=== PATIENT | female | born 1940 | race Caucasian/White ===

== ENCOUNTER → 2017-10-31 16:13 | Outpatient (CLI) | payer MEDICARE ==
[~2017-10-31 16:13] MED LIST: CALTRATE 600 M600 M1 PO; DICLOFENAC SODI50 MG PO; ELIQUIS2.5 MG PO; HYDROCODON-ACET15 ML PO; HYDROCODONE-APA1 TAB PO; KLONOPIN1 MG PO; MILK OF MAGNESI30 ML PO; MYLANTA II SUSP30 ML PO; NORCO 7.5/325 T1 TA1 PO; PERCOCET 10/3251 TA1 PO; SYNTHROID112 MCG PO; VITAMIN D5000 UNIT PO; VOLTAREN75 MG PO
[2018-02-02 11:16] VITALS: BMI 22.9
== END | disposition home or self-care (01) ==
LOC: D.LABREF 16:13
DX: M16.12 Unilateral primary osteoarthritis, left hip (principal)

== ENCOUNTER 2017-12-04 10:00 | Inpatient (IN) | payer MEDICARE ==
[~2017-12-04] VITALS: Ht 160 cm; Wt 59.1 kg
--- NOTE | ~2017-12-04 | OP ---
PATIENT NAME: TY AGUILERA MEDICAL RECORD: [id number] :42 LOCATION:[id number] ADMISSION DATE:12/09/17 SURGEON: MERCEDEZ MENEZES MD DATE OF OPERATION: 12/09/2017 PREOPERATIVE DIAGNOSIS: Severe degenerative arthritis of the left hip. POSTOPERATIVE DIAGNOSIS: Severe degenerative arthritis of the left hip. PROCEDURE: Left total hip arthroplasty. SURGEON: Mercedez Menezes MD ANESTHESIA: General. INTRAOPERATIVE COMPLICATIONS: None. SUMMARY OF PATHOLOGIC FINDINGS: A gross flattening of the femoral head with erosion of the posterior wall secondary to longstanding arthritis. IMPLANTS USED: [employer] Anato hip system, size 4 stem, standard 36 femoral head, 54 Tritanium cluster hole shell alpha code E with polyethylene to match. OPERATIVE SUMMARY IN DETAIL: After obtaining the appropriate preoperative orthopedic surgery consent as well as anesthetic consultation, evaluation and clearance, the patient was brought to the operating room and placed on the operating table in supine position. After general laryngeal mask airway was administered, the patient was placed in a right lateral decubitus position. All pressure points were well padded to include down leg peritoneal pad as well as axillary roll. The patient was held firmly to the operating table using the vacuum pack suction system. Left lower extremity and hip were then prepped and draped in routine sterile fashion. Curvilinear incision was made over the greater trochanter and taken down over the IT band, which was split in line of the fibers of the IT band to reveal the gluteus medius and minimus attachments of the greater trochanter. These were reflected anteriorly and saved for later reapproximation. The hip capsule was split in a T-type fashion. It was significantly obliterated given to this patient's severe arthritis. At this point, the hip was dislocated. Femoral neck cut was made using the femoral neck cutting guide for the Anato system. Attention was turned to the acetabulum. The acetabulum had severe posterior wall deficiency. Serial and sequential reaming was done for 53. Size [address] with good capture; however, 2 extra screws were placed because of the posterior wall deficiency. After copious irrigation, polyethylene liner was put into place. The anterior osteophytes were removed. Attention was then turned to the proximal femur. Serial and sequential reaming and broaching were done for a size 4 Anato stem, which was put into place. Trials were undertaken with the appropriate modular head lengths. It was felt that standard was the most appropriate. Standard was then placed and reduced. Intraoperative radiographs were taken and showed good position and placement of all components. The wound was copiously irrigated. At this point, Vitagel was used in the depths of the wound in each layer. Gluteus minimus and amee were reapproximated to the greater trochanter in a transosseous fashion with #5 Ethibond. This was followed by #2 Ethibond closure of the IT band, followed by #1 Vicryl, 2-0 Vicryl and zip tie closure. Having completed this, the patient was awakened, taken to recovery room in stable condition. All final needle and sponge counts were correct. OPERATIVE REPORT [id number] TY AGUILERA TRANSINT:[id number] Voice Confirmation ID: [id number] DOCUMENT ID: [id number] CLIF LOZANO, MERCEDEZ MORSE at 1921 CC: [id number] DICTATION DATE: 12/09/17 1350 TRADING MANAGER: 12/09/17 1531 ADM IN [facility] [address] [place] [address]
[~2017-12-04 10:00] MED LIST changes: -ELIQUIS2.5 MG PO; -HYDROCODON-ACET15 ML PO; -HYDROCODONE-APA1 TAB PO; -PERCOCET 10/3251 TA1 PO; -VOLTAREN75 MG PO
[2017-12-04 11:13] LABS: BASOPHILS 0.5 % (0-2); EOSINOPHILS 2.5 % (0-7); HEMOGLOBIN 14.9 g/dL (12-16); IMMATURE GRANULOCYTES 0.2 % (0-5); LYMPHOCYTES 35.4 % (15-50); MCH 33.3 pg (26.0-34.0); MCHC 33.9 g/dL (31.0-37.0); MCV 98.2 fL (80.0-100.0); MEAN PLATELET VOLUME 10.5 fL (7.4-10.4); MONOCYTES 6.8 % (2-11); NEUTROPHILS 54.6 % (40-80); PLATELET COUNT 206 10x3/uL (130-400); RBC 4.48 10x6/uL (4.00-5.40); RDW 13.2 % (11.5-14.5); WBC 6.5 10x3/uL (4.8-10.8)
[2017-12-04 11:21] LABS: APTT 25.7 SECONDS (22.8-39.4); INR 1.02 (0.85-1.17); PROTIME 13.1 SECONDS (11.6-15.0)
[2017-12-04 11:23] LABS: ANION GAP 12.5 mmol/L (8-16); CALCIUM 9.1 mg/dL (8.5-10.1); CARBON DIOXIDE 28.9 mmol/L (21.0-32.0); CREATININE - SERUM 0.8 mg/dL (0.6-1.3); POTASSIUM - SERUM 4.4 mmol/L (3.5-5.1)
[2017-12-04 11:30] LABS: APPEARANCE CLEAR (CLEAR); BACTERIA FEW /hpf (NONE SEEN); BILIRUBIN NEGATIVE (NEGATIVE); COLOR YELLOW (YELLOW); EPITHELIAL CELLS 0-5 /hpf (0-5); GLUCOSE NEGATIVE (NEGATIVE); KETONE NEGATIVE (NEGATIVE); MUCUS <1+ /lpf (NONE SEEN); NITRITE NEGATIVE (NEGATIVE); PROTEIN NEGATIVE (NEGATIVE); RED CELLS - URINE OCC /hpf (0-5); SPECIFIC GRAVITY 1.005 (1.005-1.020); UROBILINOGEN NORMAL (NORMAL); WHITE CELLS - URINE RARE /hpf (0-5)
[2017-12-09 07:38] VITALS: BP 137/74; BMI 23.0
[2017-12-09 15:11] VITALS: BP 136/79
[2017-12-09 19:14] VITALS: BP 136/79; Ht 160 cm; Wt 59.1 kg
[2017-12-09 21:52] VITALS: BP 121/74
[2017-12-10 00:37] VITALS: BP 124/74
[2017-12-10 05:06] LABS: HEMATOCRIT 35.6 % (36.0-48.0); HEMOGLOBIN 12.1 g/dL (12-16); MCH 33.2 pg (26.0-34.0); MCV 97.5 fL (80.0-100.0); MEAN PLATELET VOLUME 10.4 fL (7.4-10.4); RBC 3.65 10x6/uL (4.00-5.40); RDW 12.9 % (11.5-14.5); WBC 8.9 10x3/uL (4.8-10.8)
[2017-12-10 07:44] VITALS: BP 114/65
[2017-12-10 12:02] VITALS: BP 105/66
[2017-12-10 16:37] VITALS: BP 108/70
[2017-12-10 20:00] VITALS: BP 119/69
[2017-12-11 04:00] VITALS: BP 99/50
[2017-12-11 06:25] LABS: HEMATOCRIT 33.6 % (36.0-48.0); HEMOGLOBIN 11.2 g/dL (12-16); MCH 32.1 pg (26.0-34.0); MCHC 33.3 g/dL (31.0-37.0); MCV 96.3 fL (80.0-100.0); MEAN PLATELET VOLUME 10.6 fL (7.4-10.4); RBC 3.49 10x6/uL (4.00-5.40); WBC 7.5 10x3/uL (4.8-10.8)
[2017-12-11 08:06] VITALS: BP 100/58
[2017-12-11] MEDS ORDERED: PERCOCET 10/3251 TA1 PO (08:22)
[2017-12-11] MEDS ORDERED: ELIQUIS2.5 MG PO (08:22)
== END 2017-12-11 14:20 | disposition home health service (06) | DRG 470 ==
LOC: D.SDCHOLD 12-09 07:00 → D.MS 12-09 07:00 → D.SDCHOLD 12-09 08:40 → D.MS 12-09 14:27
PROVIDERS: Orthopaedic Surgery
PROC: 0SRB0JZ Replacement of Left Hip Joint with Synthetic Substitute, Open Approach (ICD-10-PCS; principal; 2017-12-09 10:45)
DX: M16.12 Unilateral primary osteoarthritis, left hip (principal); M25.752 Osteophyte, left hip; K21.9 Gastro-esophageal reflux disease without esophagitis; E03.9 Hypothyroidism, unspecified

== ENCOUNTER 2018-02-01 20:21 | Inpatient (IN) | payer MEDICARE ==
[~2018-02-01] VITALS: Ht 160 cm; Wt 58.6 kg
--- NOTE | ~2018-02-01 | OP ---
PATIENT NAME: TY AGUILERA MEDICAL RECORD: [id number] :42 LOCATION:[id number] ADMISSION DATE:02/01/18 SURGEON: SANTI MARTINEZ MD DATE OF OPERATION: 02/02/2018 PREOPERATIVE DIAGNOSES: 1. Acute appendicitis with localized peritonitis. 2. Hypothyroidism. 3. Osteoarthritis. 4. Gastroesophageal reflux disease. POSTOPERATIVE DIAGNOSES: 1. Acute appendicitis with localized peritonitis. 2. Hypothyroidism. 3. Osteoarthritis. 4. Gastroesophageal reflux disease. PROCEDURE: Laparoscopic appendectomy. SURGEON: Santi Martinez MD REPORT OF PROCEDURE: The patient's abdomen was prepped and draped in sterile fashion. A cutdown was made on the superior aspect of the umbilicus, 0 Vicryls were placed in the fascia bilaterally and the fascia was incised with 15-blade. I then bluntly entered into the peritoneal cavity and placed a 12-mm Isabella port. Under direct visualization, a 5-mm trocar was placed in left lower quadrant and another was placed in the suprapubic region. The appendix was grasped and elevated and noted to be markedly inflamed. The base of the appendix appeared to be normal in caliber. The window was made between the base of the appendix and the mesoappendix and the mesoappendix was transected with the 45 white load Endo-MADISYN stapler. The appendix was then transected at its base using a 45 blue load Endo-MADISYN stapler. The appendix was then placed into an Endo Catch bag. We irrigated out the right lower quadrant and the pelvis and assured there was no sign of any active bleeding. At this point, the ports and insufflation were then removed and the appendix was taken out through the umbilicus. The umbilical fascia was closed with interrupted 0 Vicryls times 3. The wounds were then irrigated out with normal saline and infused with 10 mL of 0.25% Marcaine with epinephrine. The skin incisions were all closed with subcutaneous 5-0 Monocryl and dressed appropriately. COMPLICATIONS: None. CONDITION: Stable. ANESTHESIA: General endotracheal and local. BLOOD LOSS: Minimal. TRANSINT:[id number] Voice Confirmation ID: [id number] DOCUMENT ID: [id number] OPERATIVE REPORT [id number] TY AGUILERA CHRISTIAN MD at 1255 CC: MINI ESQUIVEL [id number] DICTATION DATE: 02/02/18 1118 SHOVEL LOADER OPERATOR: 02/02/18 1528 ADM IN [facility] [address] [place] [id number]
--- NOTE | ~2018-02-01 | DS ---
PATIENT:TY AGUILERA :44 MEDICAL RECORD: [id number] DISCHARGE SUMMARY ADMISSION DATE: 02/01/18 DISCHARGE DATE: 02/03/18 DATE OF ADMISSION: 02/01/2018. DATE OF DISCHARGE: 02/03/2018. ADMISSION DIAGNOSES: 1. Acute appendicitis with localized peritonitis. 2. Gastroesophageal reflux disease. 3. Osteoarthritis. 4. Hypothyroidism. DISCHARGE DIAGNOSES: 1. Acute appendicitis with localized peritonitis. 2. Gastroesophageal reflux disease. 3. Osteoarthritis. 4. Hypothyroidism. PROCEDURE: Laparoscopic appendectomy on 02/02/2018. CONSULTATIONS: None. REPORT OF HOSPITALIZATION: The patient was admitted to the hospital with acute appendicitis. She was admitted and started on IV antibiotics through the ER and that morning, she was taken to the operating room where she underwent a successful laparoscopic appendectomy. The following day, she was doing well and set up for discharge home. DISCHARGE INSTRUCTIONS: Return to clinic or call with any questions or concerns, fevers, chills, nausea, vomiting, or worsening abdominal pain. ACTIVITIES: No heavy lifting or straining for 2 weeks postoperatively. FOLLOWUP: In clinic with me in 2-3 weeks. DISCHARGE MEDICATIONS: Resume home medications with the inclusion of Nekoma 10. TRANSINT:[id number] Voice Confirmation ID: [id number] DOCUMENT ID: [id number] MEHDI MARTINEZ MD at 1147 CC: [id number] DICTATION DATE: 02/18/18 1223 MED AIDE: 02/18/18 1304 DIS IN 02/03/18 [id number] [place] [address]
[~2018-02-01 20:21] MED LIST changes: +ELIQUIS2.5 MG PO; +PERCOCET 10/3251 TA1 PO
[2018-02-01 20:54] LABS: BASOPHILS 0.1 % (0-2); EOSINOPHILS 1.7 % (0-7); HEMOGLOBIN 12.2 g/dL (12-16); IMMATURE GRANULOCYTES 0.3 % (0-5); LYMPHOCYTES 23.4 % (15-50); MCH 31.9 pg (26.0-34.0); MCHC 33.9 g/dL (31.0-37.0); MONOCYTES 5.5 % (2-11); PLATELET COUNT 170 10x3/uL (130-400); RBC 3.83 10x6/uL (4.00-5.40); RDW 13.1 % (11.5-14.5); WBC 13.4 10x3/uL (4.8-10.8)
[2018-02-01 21:08] LABS: ALBUMIN 3.4 g/dL (3.4-5.0); ANION GAP 11.9 mmol/L (8-16); BILIRUBIN - TOTAL 0.31 mg/dL (0.2-1.3); CALCIUM 8.9 mg/dL (8.5-10.1); CARBON DIOXIDE 28.6 mmol/L (21.0-32.0); POTASSIUM - SERUM 3.5 mmol/L (3.5-5.1); PROTEIN - SERUM 6.9 g/dL (6.4-8.2)
[2018-02-01 22:21] LABS: APPEARANCE CLEAR (CLEAR); BILIRUBIN NEGATIVE (NEGATIVE); COLOR YELLOW (YELLOW); GLUCOSE NEGATIVE (NEGATIVE); KETONE NEGATIVE (NEGATIVE); NITRITE NEGATIVE (NEGATIVE); PROTEIN NEGATIVE (NEGATIVE); SPECIFIC GRAVITY 1.005 (1.005-1.020); UROBILINOGEN NORMAL (NORMAL)
[2018-02-01 22:22] LABS: WHITE CELLS - URINE 0-5 /hpf (0-5)
[2018-02-01 22:23] LABS: AMORPHOUS SEDIMENT <1+ /lpf (NONE SEEN); BACTERIA MODERATE /hpf (NONE SEEN); EPITHELIAL CELLS 0-5 /hpf (0-5); RED CELLS - URINE 0-5 /hpf (0-5)
[2018-02-02] VITALS (11 sets, daily range): BP systolic 99–135; BP diastolic 50–74; Ht 160 cm; Wt 58.6 kg
[2018-02-02] MEDS ORDERED: HYDROCODON-ACET15 ML PO (00:39)
[2018-02-02] MEDS ORDERED: VOLTAREN75 MG PO (00:40)
[2018-02-02 08:40] LABS: BASOPHILS 0.1 % (0-2); EOSINOPHILS 0 % (0-7); HEMATOCRIT 38.7 % (36.0-48.0); HEMOGLOBIN 12.9 g/dL (12-16); IMMATURE GRANULOCYTES 0.2 % (0-5); LYMPHOCYTES 7.9 % (15-50); MCH 31.9 pg (26.0-34.0); MCHC 33.3 g/dL (31.0-37.0); MCV 95.8 fL (80.0-100.0); MEAN PLATELET VOLUME 10.3 fL (7.4-10.4); MONOCYTES 4.2 % (2-11); NEUTROPHILS 87.6 % (40-80); PLATELET COUNT 160 10x3/uL (130-400); RBC 4.04 10x6/uL (4.00-5.40); RDW 13.3 % (11.5-14.5); WBC 10.6 10x3/uL (4.8-10.8)
[2018-02-02 08:51] LABS: INR 1.07 (0.85-1.17); PROTIME 13.5 SECONDS (11.6-15.0)
[2018-02-02 08:55] LABS: ALBUMIN 3.2 g/dL (3.4-5.0); BILIRUBIN - TOTAL 0.49 mg/dL (0.2-1.3); CALCIUM 8.4 mg/dL (8.5-10.1); CARBON DIOXIDE 27.1 mmol/L (21.0-32.0); CREATININE - SERUM 0.8 mg/dL (0.6-1.3)
[2018-02-02 08:56] LABS: POTASSIUM - SERUM 4.1 mmol/L (3.5-5.1)
[2018-02-03 04:00] VITALS: BP 120/64
[2018-02-03 08:06] VITALS: BP 112/70
[2018-02-03] MEDS ORDERED: HYDROCODONE-APA1 TAB PO (12:54)
[2018-02-03 13:15] VITALS: BP 112/64
== END 2018-02-03 14:46 | disposition home or self-care (01) | DRG 340 ==
LOC: D.ER 20:21 → D.MS 23:11
PROVIDERS: Family Medicine; Surgery
PROC: 0DTJ4ZZ Resection of Appendix, Percutaneous Endoscopic Approach (ICD-10-PCS; principal; 2018-02-02 10:51)
DX: K35.3 Acute appendicitis with localized peritonitis (principal); E03.9 Hypothyroidism, unspecified; K21.9 Gastro-esophageal reflux disease without esophagitis; M19.90 Unspecified osteoarthritis, unspecified site; Z87.891 Personal history of nicotine dependence